=== PATIENT | female | born 1960 | race Caucasian/White ===

== ENCOUNTER 2019-04-30 10:35 | Outpatient (CLI) | payer BC ==
--- NOTE | 2019-05-04 06:46 | MMO ---
Bilateral MAMMO Bilat Screen [facility]. CLINICAL HISTORY: Patient is 58 years old and is seen for screening. The patient has no family history of breast cancer. The patient has no personal history of cancer. VIEWS: The views performed were: bilateral craniocaudal with tomosynthesis and bilateral mediolateral oblique with tomosynthesis. FILMS COMPARED: The present examination has been compared to prior imaging studies performed at [facility] on 12/29/2014, at [facility] on 08/06/2016, and at [facility] on 01/06/2015 and 06/30/2015. MAMMOGRAM FINDINGS: The breasts are heterogeneously dense, which could obscure a lesion on mammography. There are benign appearing calcifications seen in the left breast. There are no suspicious masses, suspicious calcifications, or new areas of architectural distortion. IMPRESSION: THERE IS NO MAMMOGRAPHIC EVIDENCE OF MALIGNANCY. A ROUTINE FOLLOW-UP MAMMOGRAM IN 1 YEAR IS RECOMMENDED. THE RESULTS OF THIS EXAM WERE SENT TO THE PATIENT. ACR BI-RADS Category 2 - Benign finding MAMMOGRAPHY NOTE: 1. A negative mammogram report should not delay a biopsy if a dominant of clinically suspicious mass is present. 2. Approximately 10% to 15% of breast cancers are not detected by mammography. 3. Adenosis and dense breasts may obscure an underlying neoplasm. Reported by: EITAN THOMASON MD Electonically Signed: [id number]
== END 2019-04-30 10:36 | disposition home or self-care (01) ==
LOC: BICMAMMO 10:35
PROVIDERS: ATTEND Family Medicine
DX: Z12.31 Encounter for screening mammogram for malignant neoplasm of breast (principal)
CPT/HCPCS: 77063; 77067

== ENCOUNTER 2024-06-22 08:53 | Outpatient (CLI) | payer BC | END 2024-06-22 08:54 | disposition home or self-care (01) | LOC: BICMAMMO 08:53 | PROVIDERS: ATTEND Registered Nurse | DX: Z12.31 Encounter for screening mammogram for malignant neoplasm of breast (principal); Z78.0 Asymptomatic menopausal state; M85.88 Other specified disorders of bone density and structure, other site; M81.0 Age-related osteoporosis without current pathological fracture | CPT/HCPCS: 77063; 77067; 77080 ==

== ENCOUNTER 2025-05-24 12:28 | Outpatient (CLI) | payer BC ==
[2025-05-24] MEDS ORDERED: Iopamidol 370 76% 100 ML VIAL ONE (14:54)
== END 2025-05-24 12:29 | disposition home or self-care (01) ==
LOC: CT 12:28
PROVIDERS: ATTEND Internal Medicine Cardiovascular Disease
DX: I65.23 Occlusion and stenosis of bilateral carotid arteries (principal)
CPT/HCPCS: 70498; Q9967

== ENCOUNTER 2025-06-10 14:48 | Outpatient (CLI) | payer BC | END 2025-06-10 14:49 | disposition home or self-care (01) | LOC: ULT 14:48 | PROVIDERS: ATTEND Internal Medicine Cardiovascular Disease | DX: R09.89 Other specified symptoms and signs involving the circulatory and respiratory systems (principal) | CPT/HCPCS: 93923 ==

== ENCOUNTER 2025-06-28 11:21 | Outpatient (CLI) | payer BC ==
[2025-06-28 12:04] LABS: #Basophils Less than 0.03 10x3/uL (0.0-0.2); #Eosinophils 0.09 10x3/uL (0.0-0.7); #Monocytes 0.59 10x3/uL (0.11-0.59); #Neutrophils 2.82 10x3/uL (1.40-6.50); %Basophils 0.2 % (0.0-1.0); %Eosinophils 1.9 % (0.0-10.0); %Lymphocytes 26.4 % (21.0-51.0); %Monocytes 12.3 % (0.0-10.0); %Neutrophils 59.0 % (42.0-75.0); Hematocrit 41.0 % (36.0-47.0); Hemoglobin 12.8 g/dL (12.0-16.0); Mean Corpuscular Hemoglobin 27.7 pg (27.0-31.0); Mean Corpuscular Volume 88.7 fL (78.0-98.0); Platelet Count 208 10x3/uL (130-400); Red Blood Cell (RBC) Count 4.62 mill/uL (4.20-5.40); White Blood Cell (WBC) Count 4.78 10x3/uL (4.8-10.8)
[2025-06-28 12:18] LABS: Anion Gap 12 mmol/L (10-20); BUN (Urea Nitrogen) 6 mg/dL (9.8-20.1); Calc. Creatinine Clearance 0 mL/min (70-130); Calcium 9.3 mg/dL (7.8-10.44); Carbon Dioxide 26 mmol/L (23-31); Chloride 105 mmol/L (98-107); Glucose 91 mg/dL (80-115); Potassium 4.0 mmol/L (3.5-5.1); Sodium 139 mmol/L (136-145)
== END 2025-06-28 11:22 | disposition home or self-care (01) ==
LOC: LABBT 11:21
PROVIDERS: ATTEND Thoracic Surgery (Cardiothoracic Vascular Surgery)
DX: Z01.818 Encounter for other preprocedural examination (principal); I65.22 Occlusion and stenosis of left carotid artery
CPT/HCPCS: 80048; 85025; 93005; 93010